=== PATIENT | female | born 1945 | race Caucasian/White ===

== ENCOUNTER 2024-06-23 11:08 | Outpatient (CLI) | payer MEDICARE | END 2024-06-23 23:59 | disposition home or self-care (01) | LOC: RAD 11:08 | PROVIDERS: ATTEND Otolaryngology | DX: R00.1 Bradycardia, unspecified (principal); J32.0 Chronic maxillary sinusitis; I51.9 Heart disease, unspecified; R94.31 Abnormal electrocardiogram [ECG] [EKG] | CPT/HCPCS: 93005 ==